=== PATIENT | female | born 1955 | race Caucasian/White ===

== ENCOUNTER 2018-08-22 02:29 | Emergency (ER) | payer MEDICARE, OTHER, SELFPAY ==
[2018-08-22] VITALS (12 sets, daily range): BP systolic 93–133; BP diastolic 59–94; PULSE 78–94; RESP 12–18; O2SAT 95–100
[2018-08-22] MEDS: PANTOPRAZOLE 40 MG VIAL IV (02:56)
[2018-08-22] MEDS: ONDANSETRON 4 MG/2 ML INJ IV (02:56)
--- NOTE | 2018-08-22 02:59 | ED.GIBLEED ---
HPI - GI Bleed <Cecilio Granados DO - Last Filed: 08/22/18 19:28> General Chief complaint: GI Bleed Stated complaint: Bloody stool, abdominal pain Time Seen by Provider: 08/22/18 02:30 Source: patient, family and EMS Mode of arrival: EMS Limitations: no limitations History of Present Illness HPI Narrative: 63 year old female, non smoker with history of breast CA presents by EMS with chief complaint of generalized abdominal cramping for 2 days and 1 day of increased blood per rectum. She's becoming weak. She states her abdominal discomfort builds until a BM at which point she feels some brief relief. Her last colonoscopy was over 10 years ago. She denies use of blood thinners. She does not drink alcohol and denies history of liver disease. She brought two jars with samples of the clotted, foul smelling blood. She refuses any blood product due to buddhism reasons. MD complaint: gross hematochezia Onset (ago): hour(s) Pain Consistency: intermittent Severity: moderate Relieving factors: bowel movement Associated symptoms: abdominal pain Treatments Prior to Arrival: none Related Data Home Medications Medication Instructions Recorded Confirmed [VITAMIN D] #0 05/25/11 07/08/18 Previous Rx's Medication Instructions Recorded gabapentin [Neurontin] 300 mg PO BID #30 cap 01/08/18 ondansetron [Zofran ODT] 4 mg SUBLINGUAL Q6HP PRN #20 odt 01/08/18 oxycodone-acetaminophen [Endocet] 1 tab PO Q4HP PRN #30 tab 01/08/18 Allergies Allergy/AdvReac Type Severity Reaction Status Date / Time No Known Drug Allergies Allergy Unverified 08/22/18 03:04 Review of Systems <Cecilio Granados DO - Last Filed: 08/22/18 19:28> Review of Systems All systems reviewed & are unremarkable except as noted in HPI and below Constitutional Denies chills, Denies fever(s), Denies lethargy and Denies weakness Eyes Denies change in vision, Denies eye discharge, Denies irritation and Denies loss of vision ENT Ears, Nose, Mouth, and Throat: Denies change in voice, Denies neck pain and Denies sore throat Cardiovascular Denies chest pain, Denies irregular heart rhythm, Denies lightheadedness, Denies palpitations, Denies dyspnea, Denies dyspnea on exertion and Denies orthopnea Respiratory Denies cough, Denies dyspnea, Denies dyspnea on exertion and Denies wheezing Gastrointestinal Gastrointestinal: Reports abdominal pain, Reports hematochezia, Denies change in bowel habits, Denies diarrhea, Denies nausea and Denies vomiting Genitourinary Denies hematuria, Denies flank pain, Denies urinary incontinence and Denies urinary urgency Musculoskeletal Denies neck pain Integumentary/Breasts Denies pruritus, Denies erythema, Denies rash and Denies wounds Neurologic Denies confusion, Denies loss of vision and Denies weakness Psychiatric Denies anxiety, Denies confusion, Denies depression, Denies homicidal ideation and Denies suicidal ideation Endocrine Denies palpitations Hematologic/Lymphatic Denies easy bruising Allergic/Immunologic Denies wheezing Exam <Cecilio Granados, - Last Filed: 08/22/18 19:28> Narrative Exam Narrative: GENERAL: Pleasant 63F in mild distress, clearly not feeling well. HEAD: Atraumatic. Normocephalic. No temporal or scalp tenderness. EYES: No conjunctival pallor. Pupils equal round and reactive. Extraocular motions intact. No scleral icterus. No injection or drainage. ENT: Nose without bleeding, purulent drainage or septal hematoma. Throat without erythema, tonsillar hypertrophy or exudate. Uvula midline. Airway patent. NECK: Trachea midline. No JVD or lymphadenopathy. Supple, nontender, no meningeal signs. CARDIOVASCULAR: Regular rate and rhythm without murmurs, gallops, or rubs. RESPIRATORY: Clear to auscultation. Breath sounds equal bilaterally. No wheezes, rales, or rhonchi. GASTROINTESTINAL: Abdomen soft, non-tender, nondistended. No hepato-splenomegaly, or palpable masses. No guarding. RECTAL: deferred, went to bedside with female nursing air commodore, but she had to quickly have another BM, noted to be bloody EXTREMITIES: No clubbing, cyanosis, or edema. No joint tenderness, effusion, or edema noted. BACK: Nontender without deformity or crepitance. No flank tenderness. NEURO: AOx3. SKIN: Warm, pale. No diaphoresis Initial Vital Signs Initial Vital Signs: Vital Signs Pulse Rate 81 08/22/18 02:30 Respiratory Rate 18 08/22/18 02:30 Blood Pressure 133/94 H 08/22/18 02:30 Pulse Oximetry 100 08/22/18 02:30 <Sloan Stevens DO - Last Filed: 08/22/18 09:22> Initial Vital Signs Initial Vital Signs: Vital Signs Pulse Rate 81 08/22/18 02:30 Respiratory Rate 18 08/22/18 02:30 Blood Pressure 133/94 H 08/22/18 02:30 Pulse Oximetry 100 08/22/18 02:30 Course <Cecilio Granados DO - Last Filed: 08/22/18 19:28> Orders Ordered: Discontinued Medications Sodium Chloride (Normal Saline 0.9%) 1,000 mls @ 500 mls/hr IV BOLUS ONE Stop: 08/22/18 11:36 Last Infusion: 08/22/18 10:30 Dose: 0 mls/hr Admin: 08/22/18 10:08 Dose: 500 mls/hr Ondansetron HCl (Zofran) 4 mg IV NOW ONE Stop: 08/22/18 02:31 Last Admin: 08/22/18 02:56 Dose: 4 mg Pantoprazole Sodium (Protonix) 40 mg IV NOW ONE Stop: 08/22/18 02:31 Last Admin: 08/22/18 02:56 Dose: 40 mg Reevaluation(s) Reevaluation #1: upon standing patient becomes tachy in the 110s and dizzy Time: 03:26 Vital Signs - 8 hr 08/22/18 02:30 08/22/18 03:10 08/22/18 04:05 Pulse Rate 81 81 85 Respiratory Rate 18 18 18 Blood Pressure 133/94 H Blood Pressure [Right Arm] 101/81 103/64 Pulse Oximetry 100 100 100 08/22/18 05:15 08/22/18 05:48 08/22/18 06:33 Pulse Rate 83 82 84 Respiratory Rate 18 16 18 Blood Pressure Blood Pressure [Right Arm] 96/68 103/67 98/64 Pulse Oximetry 100 97 08/22/18 07:00 08/22/18 07:30 08/22/18 08:06 Pulse Rate 94 H 87 89 Respiratory Rate 15 15 15 Blood Pressure Blood Pressure [Right Arm] 107/74 100/66 93/70 Pulse Oximetry 95 96 97 <DO Chepe Jarvis Last Filed: 08/22/18 09:22> Orders Ordered: Discontinued Medications Sodium Chloride (Normal Saline 0.9%) 1,000 mls @ 500 mls/hr IV BOLUS ONE Stop: 08/22/18 11:36 Last Infusion: 08/22/18 10:30 Dose: 0 mls/hr Admin: 08/22/18 10:08 Dose: 500 mls/hr Ondansetron HCl (Zofran) 4 mg IV NOW ONE Stop: 08/22/18 02:31 Last Admin: 08/22/18 02:56 Dose: 4 mg Pantoprazole Sodium (Protonix) 40 mg IV NOW ONE Stop: 08/22/18 02:31 Last Admin: 08/22/18 02:56 Dose: 40 mg Vital Signs - 8 hr 08/22/18 02:30 08/22/18 03:10 08/22/18 04:05 Pulse Rate 81 81 85 Respiratory Rate 18 18 18 Blood Pressure 133/94 H Blood Pressure [Right Arm] 101/81 103/64 Pulse Oximetry 100 100 100 08/22/18 05:15 08/22/18 05:48 08/22/18 06:33 Pulse Rate 83 82 84 Respiratory Rate 18 16 18 Blood Pressure Blood Pressure [Right Arm] 96/68 103/67 98/64 Pulse Oximetry 100 97 08/22/18 07:00 08/22/18 07:30 08/22/18 08:06 Pulse Rate 94 H 87 89 Respiratory Rate 15 15 15 Blood Pressure Blood Pressure [Right Arm] 107/74 100/66 93/70 Pulse Oximetry 95 96 97 MDM - GI Bleed <Cecilio Granados DO - Last Filed: 08/22/18 19:28> Lab Data Result diagrams: 08/22/18 08:09 08/22/18 03:00 Lab Results 08/22/18 08/22/18 08/22/18 Range/Units 03:00 03:00 03:00 WBC 7.0 (4.5-11.0) X10^3/uL RBC 3.72 L (4.0-5.2) X10^6/uL Hgb 11.0 L (12.0-16.0) g/dL Hct 31.7 L (36-46) % MCV 85.0 (80-100) fL MCH 29.5 (26-34) PG MCHC 34.6 (30-36) % RDW 13.1 (11.6-14.8) % Plt Count 253 (150-400) X10^3/uL Neut % (Auto) 62.8 (50-75) % Lymph % (Auto) 25.7 (25-40) % [place] % (Auto) 8.8 (3-14) % Eos % (Auto) 1.9 L (2-4) % Baso % (Auto) 0.8 (0-2) % Neut # (Auto) 4400 (9105-8971) /uL PT 10.8 (10.1-12.7) SECONDS INR 1.0 (0.9-1.3) APTT 28 (26.4-36.2) SECONDS Sodium 141 (137-145) mmol/L Potassium 3.8 (3.4-5.1) mmol/L Chloride 104 (98-107) mmol/L Carbon Dioxide 26 (22-32) mmol/L BUN 24 H (7-17) mg/dL Creatinine 0.70 (0.52-1.04) mg/dL Estimated GFR > 60.0 (>60) mL/min BUN/Creatinine Ratio 34.3 H (6-22) Glucose 117 H (80-110) mg/dL Calcium 9.2 (8.4-10.2) mg/dL Total Bilirubin 0.3 (0.2-1.3) mg/dL AST 30 (14-36) IU/L ALT 43 (9-52) IU/L Alkaline Phosphatase 72 (38-126) U/L Total Protein 6.2 L (6.3-8.2) g/dL Albumin 4.1 (3.5-5.0) g/dL Globulin 2.1 (1.7-4.1) g/dL Albumin/Globulin Ratio 2.0 (1.0-2.8) Stool Aeromonas Cult (Not Detect) Stl C. cayetanensis PCR (Not Detect) Stool Rotavirus (PCR) (Not Detect) Stool Adenovirus (PCR) (Not Detect) Stool Astrovirus (PCR) (Not Detect) Stool Cryptosporidium PCR (Not Detect) Stl E.coli Shiga Tox PCR (Not Detect) St Sh/Enteroin Ecoli PCR (Not Detect) Stool E coli O157 PCR Stl Enterotoxigenic E PCR (Not Detect) Stool EPEC (PCR) (Not Detect) Stl E. histolytica PCR (Not Detect) Stool Giardia Lamblia PCR (Not Detect) Stool Sapovirus (PCR) (Not Detect) Stl P. shigelloides PCR (Not Detect) St Y.enterocolitica PCR (Not Detect) Stool Vibrio (PCR) (Not Detect) Stl Vibrio cholerae PCR (Not Detect) Stl Enteroaggr Ecoli PCR (Not Detect) Stl Norovirus GI/GII PCR (Not Detect) Campylobacter (PCR) (Not Detect) C. difficile Tox (PCR) (Not Detect) Salmonella (PCR) (Not Detect) 08/22/18 08/22/18 08/22/18 Range/Units 05:11 06:50 08:09 WBC (4.5-11.0) X10^3/uL RBC (4.0-5.2) X10^6/uL Hgb 9.5 L 9.2 L (12.0-16.0) g/dL Hct 28.5 L 27.2 L (36-46) % MCV (80-100) fL MCH (26-34) PG MCHC (30-36) % RDW (11.6-14.8) % Plt Count (150-400) X10^3/uL Neut % (Auto) (50-75) % Lymph % (Auto) (25-40) % [place] % (Auto) (3-14) % Eos % (Auto) (2-4) % Baso % (Auto) (0-2) % Neut # (Auto) (4896-7841) /uL PT (10.1-12.7) SECONDS INR (0.9-1.3) APTT (26.4-36.2) SECONDS Sodium (137-145) mmol/L Potassium (3.4-5.1) mmol/L Chloride (98-107) mmol/L Carbon Dioxide (22-32) mmol/L BUN (7-17) mg/dL Creatinine (0.52-1.04) mg/dL Estimated GFR (>60) mL/min BUN/Creatinine Ratio (6-22) Glucose (80-110) mg/dL Calcium (8.4-10.2) mg/dL Total Bilirubin (0.2-1.3) mg/dL AST (14-36) IU/L ALT (9-52) IU/L Alkaline Phosphatase (38-126) U/L Total Protein (6.3-8.2) g/dL Albumin (3.5-5.0) g/dL Globulin (1.7-4.1) g/dL Albumin/Globulin Ratio (1.0-2.8) Stool Aeromonas Cult Awaiting culture res (Not Detect) Stl C. cayetanensis PCR Not detected (Not Detect) Stool Rotavirus (PCR) Not detected (Not Detect) Stool Adenovirus (PCR) Not detected (Not Detect) Stool Astrovirus (PCR) Not detected (Not Detect) Stool Cryptosporidium PCR Not detected (Not Detect) Stl E.coli Shiga Tox PCR Not detected (Not Detect) St Sh/Enteroin Ecoli PCR Not detected (Not Detect) Stool E coli O157 PCR Not Reportable Stl Enterotoxigenic E PCR Not detected (Not Detect) Stool EPEC (PCR) Not detected (Not Detect) Stl E. histolytica PCR Not detected (Not Detect) Stool Giardia Lamblia PCR Not detected (Not Detect) Stool Sapovirus (PCR) Not detected (Not Detect) Stl P. shigelloides PCR Not detected (Not Detect) St Y.enterocolitica PCR Not detected (Not Detect) Stool Vibrio (PCR) Not detected (Not Detect) Stl Vibrio cholerae PCR Not detected (Not Detect) Stl Enteroaggr Ecoli PCR Not detected (Not Detect) Stl Norovirus GI/GII PCR Not detected (Not Detect) Campylobacter (PCR) Not detected (Not Detect) C. difficile Tox (PCR) Not detected (Not Detect) Salmonella (PCR) Not detected (Not Detect) Point of Care Testing Stool Occult Blood Positive <Sloan Stevens DO - Last Filed: 08/22/18 09:22> Lab Data Attestation: I reviewed the patient's lab results. Lab Results 08/22/18 08/22/18 08/22/18 Range/Units 03:00 03:00 03:00 WBC 7.0 (4.5-11.0) X10^3/uL RBC 3.72 L (4.0-5.2) X10^6/uL Hgb 11.0 L (12.0-16.0) g/dL Hct 31.7 L (36-46) % MCV 85.0 (80-100) fL MCH 29.5 (26-34) PG MCHC 34.6 (30-36) % RDW 13.1 (11.6-14.8) % Plt Count 253 (150-400) X10^3/uL Neut % (Auto) 62.8 (50-75) % Lymph % (Auto) 25.7 (25-40) % [place] % (Auto) 8.8 (3-14) % Eos % (Auto) 1.9 L (2-4) % Baso % (Auto) 0.8 (0-2) % Neut # (Auto) 4400 (5392-8714) /uL PT 10.8 (10.1-12.7) SECONDS INR 1.0 (0.9-1.3) APTT 28 (26.4-36.2) SECONDS Sodium 141 (137-145) mmol/L Potassium 3.8 (3.4-5.1) mmol/L Chloride 104 (98-107) mmol/L Carbon Dioxide 26 (22-32) mmol/L BUN 24 H (7-17) mg/dL Creatinine 0.70 (0.52-1.04) mg/dL Estimated GFR > 60.0 (>60) mL/min BUN/Creatinine Ratio 34.3 H (6-22) Glucose 117 H (80-110) mg/dL Calcium 9.2 (8.4-10.2) mg/dL Total Bilirubin 0.3 (0.2-1.3) mg/dL AST 30 (14-36) IU/L ALT 43 (9-52) IU/L Alkaline Phosphatase 72 (38-126) U/L Total Protein 6.2 L (6.3-8.2) g/dL Albumin 4.1 (3.5-5.0) g/dL Globulin 2.1 (1.7-4.1) g/dL Albumin/Globulin Ratio 2.0 (1.0-2.8) Stool Aeromonas Cult (Not Detect) Stl C. cayetanensis PCR (Not Detect) Stool Rotavirus (PCR) (Not Detect) Stool Adenovirus (PCR) (Not Detect) Stool Astrovirus (PCR) (Not Detect) Stool Cryptosporidium PCR (Not Detect) Stl E.coli Shiga Tox PCR (Not Detect) St Sh/Enteroin Ecoli PCR (Not Detect) Stool E coli O157 PCR Stl Enterotoxigenic E PCR (Not Detect) Stool EPEC (PCR) (Not Detect) Stl E. histolytica PCR (Not Detect) Stool Giardia Lamblia PCR (Not Detect) Stool Sapovirus (PCR) (Not Detect) Stl P. shigelloides PCR (Not Detect) St Y.enterocolitica PCR (Not Detect) Stool Vibrio (PCR) (Not Detect) Stl Vibrio cholerae PCR (Not Detect) Stl Enteroaggr Ecoli PCR (Not Detect) Stl Norovirus GI/GII PCR (Not Detect) Campylobacter (PCR) (Not Detect) C. difficile Tox (PCR) (Not Detect) Salmonella (PCR) (Not Detect) 08/22/18 08/22/18 08/22/18 Range/Units 05:11 06:50 08:09 WBC (4.5-11.0) X10^3/uL RBC (4.0-5.2) X10^6/uL Hgb 9.5 L 9.2 L (12.0-16.0) g/dL Hct 28.5 L 27.2 L (36-46) % MCV (80-100) fL MCH (26-34) PG MCHC (30-36) % RDW (11.6-14.8) % Plt Count (150-400) X10^3/uL Neut % (Auto) (50-75) % Lymph % (Auto) (25-40) % [place] % (Auto) (3-14) % Eos % (Auto) (2-4) % Baso % (Auto) (0-2) % Neut # (Auto) (2732-6510) /uL PT (10.1-12.7) SECONDS INR (0.9-1.3) APTT (26.4-36.2) SECONDS Sodium (137-145) mmol/L Potassium (3.4-5.1) mmol/L Chloride (98-107) mmol/L Carbon Dioxide (22-32) mmol/L BUN (7-17) mg/dL Creatinine (0.52-1.04) mg/dL Estimated GFR (>60) mL/min BUN/Creatinine Ratio (6-22) Glucose (80-110) mg/dL Calcium (8.4-10.2) mg/dL Total Bilirubin (0.2-1.3) mg/dL AST (14-36) IU/L ALT (9-52) IU/L Alkaline Phosphatase (38-126) U/L Total Protein (6.3-8.2) g/dL Albumin (3.5-5.0) g/dL Globulin (1.7-4.1) g/dL Albumin/Globulin Ratio (1.0-2.8) Stool Aeromonas Cult Awaiting culture res (Not Detect) Stl C. cayetanensis PCR Not detected (Not Detect) Stool Rotavirus (PCR) Not detected (Not Detect) Stool Adenovirus (PCR) Not detected (Not Detect) Stool Astrovirus (PCR) Not detected (Not Detect) Stool Cryptosporidium PCR Not detected (Not Detect) Stl E.coli Shiga Tox PCR Not detected (Not Detect) St Sh/Enteroin Ecoli PCR Not detected (Not Detect) Stool E coli O157 PCR Not Reportable Stl Enterotoxigenic E PCR Not detected (Not Detect) Stool EPEC (PCR) Not detected (Not Detect) Stl E. histolytica PCR Not detected (Not Detect) Stool Giardia Lamblia PCR Not detected (Not Detect) Stool Sapovirus (PCR) Not detected (Not Detect) Stl P. shigelloides PCR Not detected (Not Detect) St Y.enterocolitica PCR Not detected (Not Detect) Stool Vibrio (PCR) Not detected (Not Detect) Stl Vibrio cholerae PCR Not detected (Not Detect) Stl Enteroaggr Ecoli PCR Not detected (Not Detect) Stl Norovirus GI/GII PCR Not detected (Not Detect) Campylobacter (PCR) Not detected (Not Detect) C. difficile Tox (PCR) Not detected (Not Detect) Salmonella (PCR) Not detected (Not Detect) Point of Care Testing Stool Occult Blood Positive MDM Narrative Medical decision making narrative: received turned over from night provider. I reviewed patient's history and physical exam. Repeat H&H same as the 2nd H&H after arrival here in the ER. Patient has continued to have bowel movements. She is alert oriented x3. Declines blood products secondary to buddhism reasons. Blood pressure has remained stable however systolic blood pressure is high 80s low 90s. No fluids were administered. Bed assignment was provided at [facility]. Patient understands transport. Patient is stable for transport. Discharge Plan Departure Patient Disposition: [facility] Clinical Impression: Acute GI bleeding Discharge Date/Time: 08/22/18 10:28 Interventions: ED Discharge Assessment Last Done: 08/22/18 10:28 Prescriptions: No Action [VITAMIN D] Qty: 0 RF: 0 oxycodone-acetaminophen [Endocet] 5 MG/325 MG tablet 1 tab PO Q4HP PRNQty: 30 RF: 0 gabapentin [Neurontin] 300 MG capsule 300 mg PO BID Qty: 30 RF: 0 ondansetron [Zofran ODT] 4 MG tablet,disintegrating 4 mg Sublingual Q6HP PRNQty: 20 RF: 0
--- NOTE | 2018-08-22 03:02 | ED_ITS ---
HPI - GI Bleed <Cecilio Granados DO - Last Filed: 08/22/18 19:28> General Chief complaint: GI Bleed Stated complaint: Bloody stool, abdominal pain Time Seen by Provider: 08/22/18 02:30 Source: patient, family and EMS Mode of arrival: EMS Limitations: no limitations History of Present Illness HPI Narrative: 63 year old female, non smoker with history of breast CA presents by EMS with chief complaint of generalized abdominal cramping for 2 days and 1 day of increased blood per rectum. She's becoming weak. She states her abdominal discomfort builds until a BM at which point she feels some brief relief. Her last colonoscopy was over 10 years ago. She denies use of blood thinners. She does not drink alcohol and denies history of liver disease. She brought two jars with samples of the clotted, foul smelling blood. She refuses any blood product due to episcopal reasons. MD complaint: gross hematochezia Onset (ago): hour(s) Pain Consistency: intermittent Severity: moderate Relieving factors: bowel movement Associated symptoms: abdominal pain Treatments Prior to Arrival: none Related Data Home Medications Medication Instructions Recorded Confirmed [VITAMIN D] #0 05/25/11 07/08/18 Previous Rx's Medication Instructions Recorded gabapentin [Neurontin] 300 mg PO BID #30 cap 01/08/18 ondansetron [Zofran ODT] 4 mg SUBLINGUAL Q6HP PRN #20 odt 01/08/18 oxycodone-acetaminophen [Endocet] 1 tab PO Q4HP PRN #30 tab 01/08/18 Allergies Allergy/AdvReac Type Severity Reaction Status Date / Time No Known Drug Allergies Allergy Unverified 08/22/18 03:04 Review of Systems <Cecilio Granados DO - Last Filed: 08/22/18 19:28> Review of Systems All systems reviewed & are unremarkable except as noted in HPI and below Constitutional Denies chills, Denies fever(s), Denies lethargy and Denies weakness Eyes Denies change in vision, Denies eye discharge, Denies irritation and Denies loss of vision ENT Ears, Nose, Mouth, and Throat: Denies change in voice, Denies neck pain and Denies sore throat Cardiovascular Denies chest pain, Denies irregular heart rhythm, Denies lightheadedness, Denies palpitations, Denies dyspnea, Denies dyspnea on exertion and Denies orthopnea Respiratory Denies cough, Denies dyspnea, Denies dyspnea on exertion and Denies wheezing Gastrointestinal Gastrointestinal: Reports abdominal pain, Reports hematochezia, Denies change in bowel habits, Denies diarrhea, Denies nausea and Denies vomiting Genitourinary Denies hematuria, Denies flank pain, Denies urinary incontinence and Denies urinary urgency Musculoskeletal Denies neck pain Integumentary/Breasts Denies pruritus, Denies erythema, Denies rash and Denies wounds Neurologic Denies confusion, Denies loss of vision and Denies weakness Psychiatric Denies anxiety, Denies confusion, Denies depression, Denies homicidal ideation and Denies suicidal ideation Endocrine Denies palpitations Hematologic/Lymphatic Denies easy bruising Allergic/Immunologic Denies wheezing Exam <Cecilio Granados, - Last Filed: 08/22/18 19:28> Narrative Exam Narrative: GENERAL: Pleasant 63F in mild distress, clearly not feeling well. HEAD: Atraumatic. Normocephalic. No temporal or scalp tenderness. EYES: No conjunctival pallor. Pupils equal round and reactive. Extraocular motions intact. No scleral icterus. No injection or drainage. ENT: Nose without bleeding, purulent drainage or septal hematoma. Throat without erythema, tonsillar hypertrophy or exudate. Uvula midline. Airway patent. NECK: Trachea midline. No JVD or lymphadenopathy. Supple, nontender, no meningeal signs. CARDIOVASCULAR: Regular rate and rhythm without murmurs, gallops, or rubs. RESPIRATORY: Clear to auscultation. Breath sounds equal bilaterally. No wheezes , rales, or rhonchi. GASTROINTESTINAL: Abdomen soft, non-tender, nondistended. No hepato-splenomegaly , or palpable masses. No guarding. RECTAL: deferred, went to bedside with female nursing tree pruner, but she had to quickly have another BM, noted to be bloody EXTREMITIES: No clubbing, cyanosis, or edema. No joint tenderness, effusion, or edema noted. BACK: Nontender without deformity or crepitance. No flank tenderness. NEURO: AOx3. SKIN: Warm, pale. No diaphoresis Initial Vital Signs Initial Vital Signs: Vital Signs Pulse Rate 81 08/22/18 02:30 Respiratory Rate 18 08/22/18 02:30 Blood Pressure 133/94 H 08/22/18 02:30 Pulse Oximetry 100 08/22/18 02:30 <Sloan Stevens DO - Last Filed: 08/22/18 09:22> Initial Vital Signs Initial Vital Signs: Vital Signs Pulse Rate 81 08/22/18 02:30 Respiratory Rate 18 08/22/18 02:30 Blood Pressure 133/94 H 08/22/18 02:30 Pulse Oximetry 100 08/22/18 02:30 Course <Cecilio Granados DO - Last Filed: 08/22/18 19:28> Orders Ordered: Discontinued Medications Sodium Chloride (Normal Saline 0.9%) 1,000 mls @ 500 mls/hr IV BOLUS ONE Stop: 08/22/18 11:36 Last Infusion: 08/22/18 10:30 Dose: 0 mls/hr Admin: 08/22/18 10:08 Dose: 500 mls/hr Ondansetron HCl (Zofran) 4 mg IV NOW ONE Stop: 08/22/18 02:31 Last Admin: 08/22/18 02:56 Dose: 4 mg Pantoprazole Sodium (Protonix) 40 mg IV NOW ONE Stop: 08/22/18 02:31 Last Admin: 08/22/18 02:56 Dose: 40 mg Reevaluation(s) Reevaluation #1: upon standing patient becomes tachy in the 110s and dizzy Time: 03:26 Vital Signs - 8 hr 08/22/18 02:30 08/22/18 03:10 08/22/18 04:05 Pulse Rate 81 81 85 Respiratory Rate 18 18 18 Blood Pressure 133/94 H Blood Pressure [Right Arm] 101/81 103/64 Pulse Oximetry 100 100 100 08/22/18 05:15 08/22/18 05:48 08/22/18 06:33 Pulse Rate 83 82 84 Respiratory Rate 18 16 18 Blood Pressure Blood Pressure [Right Arm] 96/68 103/67 98/64 Pulse Oximetry 100 97 08/22/18 07:00 08/22/18 07:30 08/22/18 08:06 Pulse Rate 94 H 87 89 Respiratory Rate 15 15 15 Blood Pressure Blood Pressure [Right Arm] 107/74 100/66 93/70 Pulse Oximetry 95 96 97 <DO Chepe Javris Last Filed: 08/22/18 09:22> Orders Ordered: Discontinued Medications Sodium Chloride (Normal Saline 0.9%) 1,000 mls @ 500 mls/hr IV BOLUS ONE Stop: 08/22/18 11:36 Last Infusion: 08/22/18 10:30 Dose: 0 mls/hr Admin: 08/22/18 10:08 Dose: 500 mls/hr Ondansetron HCl (Zofran) 4 mg IV NOW ONE Stop: 08/22/18 02:31 Last Admin: 08/22/18 02:56 Dose: 4 mg Pantoprazole Sodium (Protonix) 40 mg IV NOW ONE Stop: 08/22/18 02:31 Last Admin: 08/22/18 02:56 Dose: 40 mg Vital Signs - 8 hr 08/22/18 02:30 08/22/18 03:10 08/22/18 04:05 Pulse Rate 81 81 85 Respiratory Rate 18 18 18 Blood Pressure 133/94 H Blood Pressure [Right Arm] 101/81 103/64 Pulse Oximetry 100 100 100 08/22/18 05:15 08/22/18 05:48 08/22/18 06:33 Pulse Rate 83 82 84 Respiratory Rate 18 16 18 Blood Pressure Blood Pressure [Right Arm] 96/68 103/67 98/64 Pulse Oximetry 100 97 08/22/18 07:00 08/22/18 07:30 08/22/18 08:06 Pulse Rate 94 H 87 89 Respiratory Rate 15 15 15 Blood Pressure Blood Pressure [Right Arm] 107/74 100/66 93/70 Pulse Oximetry 95 96 97 MDM - GI Bleed <Cecilio Granados DO - Last Filed: 08/22/18 19:28> Lab Data Result diagrams: 08/22/18 08:09 08/22/18 03:00 Lab Results 08/22/18 08/22/18 08/22/18 Range/Units 03:00 03:00 03:00 WBC 7.0 (4.5-11.0) X10^3/uL RBC 3.72 L (4.0-5.2) X10^6/uL Hgb 11.0 L (12.0-16.0) g/dL Hct 31.7 L (36-46) % MCV 85.0 (80-100) fL MCH 29.5 (26-34) PG MCHC 34.6 (30-36) % RDW 13.1 (11.6-14.8) % Plt Count 253 (150-400) X10^3/uL Neut % (Auto) 62.8 (50-75) % Lymph % (Auto) 25.7 (25-40) % Lincoln % (Auto) 8.8 (3-14) % Eos % (Auto) 1.9 L (2-4) % Baso % (Auto) 0.8 (0-2) % Neut # (Auto) 4400 (4777-9660) /uL PT 10.8 (10.1-12.7) SECONDS INR 1.0 (0.9-1.3) APTT 28 (26.4-36.2) SECONDS Sodium 141 (137-145) mmol/L Potassium 3.8 (3.4-5.1) mmol/L Chloride 104 (98-107) mmol/L Carbon Dioxide 26 (22-32) mmol/L BUN 24 H (7-17) mg/dL Creatinine 0.70 (0.52-1.04) mg/dL Estimated GFR > 60.0 (>60) mL/min BUN/Creatinine Ratio 34.3 H (6-22) Glucose 117 H (80-110) mg/dL Calcium 9.2 (8.4-10.2) mg/dL Total Bilirubin 0.3 (0.2-1.3) mg/dL AST 30 (14-36) IU/L ALT 43 (9-52) IU/L Alkaline Phosphatase 72 (38-126) U/L Total Protein 6.2 L (6.3-8.2) g/dL Albumin 4.1 (3.5-5.0) g/dL Globulin 2.1 (1.7-4.1) g/dL Albumin/Globulin Ratio 2.0 (1.0-2.8) Stool Aeromonas Cult (Not Detect) Stl C. cayetanensis PCR (Not Detect) Stool Rotavirus (PCR) (Not Detect) Stool Adenovirus (PCR) (Not Detect) Stool Astrovirus (PCR) (Not Detect) Stool Cryptosporidium PCR (Not Detect) Stl E.coli Shiga Tox PCR (Not Detect) St Sh/Enteroin Ecoli PCR (Not Detect) Stool E coli O157 PCR Stl Enterotoxigenic E PCR (Not Detect) Stool EPEC (PCR) (Not Detect) Stl E. histolytica PCR (Not Detect) Stool Giardia Lamblia PCR (Not Detect) Stool Sapovirus (PCR) (Not Detect) Stl P. shigelloides PCR (Not Detect) St Y.enterocolitica PCR (Not Detect) Stool Vibrio (PCR) (Not Detect) Stl Vibrio cholerae PCR (Not Detect) Stl Enteroaggr Ecoli PCR (Not Detect) Stl Norovirus GI/GII PCR (Not Detect) Campylobacter (PCR) (Not Detect) C. difficile Tox (PCR) (Not Detect) Salmonella (PCR) (Not Detect) 08/22/18 08/22/18 08/22/18 Range/Units 05:11 06:50 08:09 WBC (4.5-11.0) X10^3/uL RBC (4.0-5.2) X10^6/uL Hgb 9.5 L 9.2 L (12.0-16.0) g/dL Hct 28.5 L 27.2 L (36-46) % MCV (80-100) fL MCH (26-34) PG MCHC (30-36) % RDW (11.6-14.8) % Plt Count (150-400) X10^3/uL Neut % (Auto) (50-75) % Lymph % (Auto) (25-40) % Lincoln % (Auto) (3-14) % Eos % (Auto) (2-4) % Baso % (Auto) (0-2) % Neut # (Auto) (5868-0093) /uL PT (10.1-12.7) SECONDS INR (0.9-1.3) APTT (26.4-36.2) SECONDS Sodium (137-145) mmol/L Potassium (3.4-5.1) mmol/L Chloride (98-107) mmol/L Carbon Dioxide (22-32) mmol/L BUN (7-17) mg/dL Creatinine (0.52-1.04) mg/dL Estimated GFR (>60) mL/min BUN/Creatinine Ratio (6-22) Glucose (80-110) mg/dL Calcium (8.4-10.2) mg/dL Total Bilirubin (0.2-1.3) mg/dL AST (14-36) IU/L ALT (9-52) IU/L Alkaline Phosphatase (38-126) U/L Total Protein (6.3-8.2) g/dL Albumin (3.5-5.0) g/dL Globulin (1.7-4.1) g/dL Albumin/Globulin Ratio (1.0-2.8) Stool Aeromonas Cult Awaiting culture res (Not Detect) Stl C. cayetanensis PCR Not detected (Not Detect) Stool Rotavirus (PCR) Not detected (Not Detect) Stool Adenovirus (PCR) Not detected (Not Detect) Stool Astrovirus (PCR) Not detected (Not Detect) Stool Cryptosporidium PCR Not detected (Not Detect) Stl E.coli Shiga Tox PCR Not detected (Not Detect) St Sh/Enteroin Ecoli PCR Not detected (Not Detect) Stool E coli O157 PCR Not Reportable Stl Enterotoxigenic E PCR Not detected (Not Detect) Stool EPEC (PCR) Not detected (Not Detect) Stl E. histolytica PCR Not detected (Not Detect) Stool Giardia Lamblia PCR Not detected (Not Detect) Stool Sapovirus (PCR) Not detected (Not Detect) Stl P. shigelloides PCR Not detected (Not Detect) St Y.enterocolitica PCR Not detected (Not Detect) Stool Vibrio (PCR) Not detected (Not Detect) Stl Vibrio cholerae PCR Not detected (Not Detect) Stl Enteroaggr Ecoli PCR Not detected (Not Detect) Stl Norovirus GI/GII PCR Not detected (Not Detect) Campylobacter (PCR) Not detected (Not Detect) C. difficile Tox (PCR) Not detected (Not Detect) Salmonella (PCR) Not detected (Not Detect) Point of Care Testing Stool Occult Blood Positive <Sloan Stevens DO - Last Filed: 08/22/18 09:22> Lab Data Attestation: I reviewed the patient's lab results. Lab Results 08/22/18 08/22/18 08/22/18 Range/Units 03:00 03:00 03:00 WBC 7.0 (4.5-11.0) X10^3/uL RBC 3.72 L (4.0-5.2) X10^6/uL Hgb 11.0 L (12.0-16.0) g/dL Hct 31.7 L (36-46) % MCV 85.0 (80-100) fL MCH 29.5 (26-34) PG MCHC 34.6 (30-36) % RDW 13.1 (11.6-14.8) % Plt Count 253 (150-400) X10^3/uL Neut % (Auto) 62.8 (50-75) % Lymph % (Auto) 25.7 (25-40) % Lincoln % (Auto) 8.8 (3-14) % Eos % (Auto) 1.9 L (2-4) % Baso % (Auto) 0.8 (0-2) % Neut # (Auto) 4400 (1316-0412) /uL PT 10.8 (10.1-12.7) SECONDS INR 1.0 (0.9-1.3) APTT 28 (26.4-36.2) SECONDS Sodium 141 (137-145) mmol/L Potassium 3.8 (3.4-5.1) mmol/L Chloride 104 (98-107) mmol/L Carbon Dioxide 26 (22-32) mmol/L BUN 24 H (7-17) mg/dL Creatinine 0.70 (0.52-1.04) mg/dL Estimated GFR > 60.0 (>60) mL/min BUN/Creatinine Ratio 34.3 H (6-22) Glucose 117 H (80-110) mg/dL Calcium 9.2 (8.4-10.2) mg/dL Total Bilirubin 0.3 (0.2-1.3) mg/dL AST 30 (14-36) IU/L ALT 43 (9-52) IU/L Alkaline Phosphatase 72 (38-126) U/L Total Protein 6.2 L (6.3-8.2) g/dL Albumin 4.1 (3.5-5.0) g/dL Globulin 2.1 (1.7-4.1) g/dL Albumin/Globulin Ratio 2.0 (1.0-2.8) Stool Aeromonas Cult (Not Detect) Stl C. cayetanensis PCR (Not Detect) Stool Rotavirus (PCR) (Not Detect) Stool Adenovirus (PCR) (Not Detect) Stool Astrovirus (PCR) (Not Detect) Stool Cryptosporidium PCR (Not Detect) Stl E.coli Shiga Tox PCR (Not Detect) St Sh/Enteroin Ecoli PCR (Not Detect) Stool E coli O157 PCR Stl Enterotoxigenic E PCR (Not Detect) Stool EPEC (PCR) (Not Detect) Stl E. histolytica PCR (Not Detect) Stool Giardia Lamblia PCR (Not Detect) Stool Sapovirus (PCR) (Not Detect) Stl P. shigelloides PCR (Not Detect) St Y.enterocolitica PCR (Not Detect) Stool Vibrio (PCR) (Not Detect) Stl Vibrio cholerae PCR (Not Detect) Stl Enteroaggr Ecoli PCR (Not Detect) Stl Norovirus GI/GII PCR (Not Detect) Campylobacter (PCR) (Not Detect) C. difficile Tox (PCR) (Not Detect) Salmonella (PCR) (Not Detect) 08/22/18 08/22/18 08/22/18 Range/Units 05:11 06:50 08:09 WBC (4.5-11.0) X10^3/uL RBC (4.0-5.2) X10^6/uL Hgb 9.5 L 9.2 L (12.0-16.0) g/dL Hct 28.5 L 27.2 L (36-46) % MCV (80-100) fL MCH (26-34) PG MCHC (30-36) % RDW (11.6-14.8) % Plt Count (150-400) X10^3/uL Neut % (Auto) (50-75) % Lymph % (Auto) (25-40) % Lincoln % (Auto) (3-14) % Eos % (Auto) (2-4) % Baso % (Auto) (0-2) % Neut # (Auto) (6512-4842) /uL PT (10.1-12.7) SECONDS INR (0.9-1.3) APTT (26.4-36.2) SECONDS Sodium (137-145) mmol/L Potassium (3.4-5.1) mmol/L Chloride (98-107) mmol/L Carbon Dioxide (22-32) mmol/L BUN (7-17) mg/dL Creatinine (0.52-1.04) mg/dL Estimated GFR (>60) mL/min BUN/Creatinine Ratio (6-22) Glucose (80-110) mg/dL Calcium (8.4-10.2) mg/dL Total Bilirubin (0.2-1.3) mg/dL AST (14-36) IU/L ALT (9-52) IU/L Alkaline Phosphatase (38-126) U/L Total Protein (6.3-8.2) g/dL Albumin (3.5-5.0) g/dL Globulin (1.7-4.1) g/dL Albumin/Globulin Ratio (1.0-2.8) Stool Aeromonas Cult Awaiting culture res (Not Detect) Stl C. cayetanensis PCR Not detected (Not Detect) Stool Rotavirus (PCR) Not detected (Not Detect) Stool Adenovirus (PCR) Not detected (Not Detect) Stool Astrovirus (PCR) Not detected (Not Detect) Stool Cryptosporidium PCR Not detected (Not Detect) Stl E.coli Shiga Tox PCR Not detected (Not Detect) St Sh/Enteroin Ecoli PCR Not detected (Not Detect) Stool E coli O157 PCR Not Reportable Stl Enterotoxigenic E PCR Not detected (Not Detect) Stool EPEC (PCR) Not detected (Not Detect) Stl E. histolytica PCR Not detected (Not Detect) Stool Giardia Lamblia PCR Not detected (Not Detect) Stool Sapovirus (PCR) Not detected (Not Detect) Stl P. shigelloides PCR Not detected (Not Detect) St Y.enterocolitica PCR Not detected (Not Detect) Stool Vibrio (PCR) Not detected (Not Detect) Stl Vibrio cholerae PCR Not detected (Not Detect) Stl Enteroaggr Ecoli PCR Not detected (Not Detect) Stl Norovirus GI/GII PCR Not detected (Not Detect) Campylobacter (PCR) Not detected (Not Detect) C. difficile Tox (PCR) Not detected (Not Detect) Salmonella (PCR) Not detected (Not Detect) Point of Care Testing Stool Occult Blood Positive MDM Narrative Medical decision making narrative: received turned over from night provider. I reviewed patient's history and physical exam. Repeat H&H same as the 2nd H&H after arrival here in the ER. Patient has continued to have bowel movements. She is alert oriented x3. Declines blood products secondary to episcopal reasons. Blood pressure has remained stable however systolic blood pressure is high 80s low 90s. No fluids were administered. Bed assignment was provided at [facility]. Patient understands transport. Patient is stable for transport. Discharge Plan Departure Patient Disposition: [facility] Clinical Impression: Acute GI bleeding Discharge Date/Time: 08/22/18 10:28 Interventions: ED Discharge Assessment Last Done: 08/22/18 10:28 Prescriptions: No Action [VITAMIN D] Qty: 0 RF: 0 oxycodone-acetaminophen [Endocet] 5 MG/325 MG tablet 1 tab PO Q4HP PRNQty: 30 RF: 0 gabapentin [Neurontin] 300 MG capsule 300 mg PO BID Qty: 30 RF: 0 ondansetron [Zofran ODT] 4 MG tablet,disintegrating 4 mg Sublingual Q6HP PRNQty: 20 RF: 0
[2018-08-22 03:13] LABS: Add Manual Diff / Slide Review NO; Alanine Aminotransferase 43 IU/L (9-52); Albumin 4.1 g/dL (3.5-5.0); Alkaline Phosphatase 72 U/L (38-126); Aspartate Aminotransferase 30 IU/L (14-36); BUN Creatinine Ratio 34.3 (6-22); Basophils Percent Auto 0.8 % (0-2); Bilirubin Total 0.3 mg/dL (0.2-1.3); Blood Urea Nitrogen 24 mg/dL (7-17); Calcium 9.2 mg/dL (8.4-10.2); Carbon Dioxide 26 mmol/L (22-32); Chloride 104 mmol/L (98-107); Eosinophils Percent Auto 1.9 % (2-4); Estimated Glomerular Filt Rate > 60.0 mL/min (>60); Globulin 2.1 g/dL (1.7-4.1); Glucose 117 mg/dL (80-110); HEMOLYSIS < 15 (0-50); Hematocrit 31.7 % (36-46); Lymphocytes Percent Auto 25.7 % (25-40); Mean Corpuscular HGB Conc 34.6 % (30-36); Mean Corpuscular Hemoglobin 29.5 PG (26-34); Monocytes Percent Auto 8.8 % (3-14); Neutrophils Absolute Auto 4400 /uL (3000-5900); Neutrophils Percent Auto 62.8 % (50-75); Platelet Count 253 X10^3/uL (150-400); Potassium 3.8 mmol/L (3.4-5.1); Red Blood Cell Count 3.72 X10^6/uL (4.0-5.2); Red Cell Distribution Width 13.1 % (11.6-14.8); Sodium 141 mmol/L (137-145); Total Protein 6.2 g/dL (6.3-8.2)
[2018-08-22 03:24] LABS: Prothrombin Time 10.8 SECONDS (10.1-12.7)
[2018-08-22 03:27] LABS: PTT Partial Thromboplastin Tim 28 SECONDS (26.4-36.2)
[2018-08-22 07:01] LABS: Hematocrit 28.5 % (36-46); Hemoglobin 9.5 g/dL (12.0-16.0)
[2018-08-22 07:01] LABS: Adenovirus F 40/41 Not Detected (Not Detect); Astrovirus Not Detected (Not Detect); Campylobacter Not Detected (Not Detect); Clostridium difficile toxin AB Not Detected (Not Detect); Cryptosporidium Not Detected (Not Detect); Cyclospora cayetanensis Not Detected (Not Detect); Entamoeba histolytica Not Detected (Not Detect); Enteroaggregative E.coli Not Detected (Not Detect); Enteropathogenic E.coli Not Detected (Not Detect); Enterotoxigenic E.coli It/st Not Detected (Not Detect); Giardia lamblia Not Detected (Not Detect); Norovirus GI/GII Not Detected (Not Detect); Plesiomonsa shigelloides Not Detected (Not Detect); Rotavirus A Not Detected (Not Detect); Salmonella Not Detected (Not Detect); Sapovirus Not Detected (Not Detect); Shiga-like toxin-prod E.coli Not Detected (Not Detect); Shigella/Enteroinvasive E.coli Not Detected (Not Detect); Vibrio Not Detected (Not Detect); Vibrio cholerae Not Detected (Not Detect); Yersinia enterocolitica Not Detected (Not Detect)
[2018-08-22 08:15] LABS: Hematocrit 27.2 % (36-46); Hemoglobin 9.2 g/dL (12.0-16.0)
[2018-08-22] MEDS: SODIUM CHLORIDE 0.9% 1,000 ML 500 ML IV (10:08)
== END 2018-08-22 10:28 | disposition short-term general hospital (02) ==
PROVIDERS: Emergency Medicine; Emergency Provider Emergency Medicine; Family Provider Family Medicine; PCP Family Medicine
DX: K92.2 Gastrointestinal hemorrhage, unspecified (principal)
CPT/HCPCS: 36415; 36591; 80053; 82272; 85014; 85018; 85025; 85610; 85730; 87507; 96374; 96375; 99284; 99285; C9113; J2405

== ENCOUNTER → 2018-09-15 12:36 | Outpatient (CLI) | payer MEDICARE, OTHER, SELFPAY ==
[2018-09-15 12:59] LABS: Hematocrit 35.8 % (36-46); Hemoglobin 11.6 g/dL (12.0-16.0)
== END ==
PROVIDERS: PCP Family Medicine; Visit Provider Family Medicine
DX: D64.9 Anemia, unspecified (principal)
CPT/HCPCS: 36415; 85014; 85018

== ENCOUNTER 2019-02-23 22:52 | Emergency (ER) | payer MEDICARE, OTHER, SELFPAY ==
[2019-02-23 23:05] VITALS: BP 165/78; PULSE 80; RESP 20; TEMP 36.9; O2SAT 95; BMI 28.3
--- NOTE | 2019-02-23 23:18 | ED.GENADULT ---
HPI - General Adult General Chief complaint: Hypertension Stated complaint: HEADACHE BLOOD PRESSURE OVER 200 Time Seen by Provider: 02/23/19 23:17 Source: patient Mode of arrival: ambulatory Limitations: no limitations History of Present Illness HPI narrative: 63-year-old female nonsmoker presents with her for evaluation of a headache over the course of the day. She took her blood pressure at home and had multiple readings in the 200s/110s. She denies blurred vision, trouble with speech or any focal neurologic problems. She denies chest pain, shortness of breath nor abdominal pain. She does not have a history of hypertension. She took Tylenol at home which seems to have helped her headache. Blood pressure is already decreasing on arrival. She denies fever, chills, or any injury. She has no neck/back pain. Her FLOREZ is frontal, squeezing, and achy. She denies any obvious provocation or palliation. Onset (ago): hour(s) Location: head Radiation: non-radiation Severity: moderate Quality: aching Pain Consistency: now resolved Relieving factors: none Exacerbating factors: none Associated symptoms: denies other symptoms Treatments prior to arrival: other Related Data Home Medications Medication Instructions Recorded Confirmed [VITAMIN D] #0 05/25/11 01/06/19 Previous Rx's Medication Instructions Recorded gabapentin [Neurontin] 300 mg PO BID #30 cap 01/08/18 ondansetron [Zofran ODT] 4 mg SUBLINGUAL Q6HP PRN #20 odt 01/08/18 oxycodone-acetaminophen [Endocet] 1 tab PO Q4HP PRN #30 tab 01/08/18 amlodipine 10 mg PO DAILY #30 tab 02/24/19 Allergies Allergy/AdvReac Type Severity Reaction Status Date / Time No Known Drug Allergies Allergy Unverified 08/22/18 03:04 Review of Systems Constitutional Denies chills, Denies fever(s), Reports headache(s), Denies lethargy and Denies weakness Eyes Denies change in vision, Denies eye discharge, Denies irritation and Denies loss of vision ENT Ears, Nose, Mouth, and Throat: Denies change in voice, Reports headache(s), Denies neck pain and Denies sore throat Cardiovascular Denies chest pain, Denies irregular heart rhythm, Denies lightheadedness, Denies palpitations, Denies dyspnea, Denies dyspnea on exertion and Denies orthopnea Respiratory Denies cough, Denies dyspnea, Denies dyspnea on exertion and Denies wheezing Gastrointestinal Gastrointestinal: Denies abdominal pain, Denies change in bowel habits, Denies diarrhea, Denies nausea and Denies vomiting Genitourinary Denies hematuria, Denies flank pain, Denies urinary incontinence and Denies urinary urgency Musculoskeletal Denies neck pain Integumentary/Breasts Denies pruritus, Denies erythema, Denies rash and Denies wounds Neurologic Denies confusion, Reports headache(s), Denies loss of vision and Denies weakness Psychiatric Denies anxiety, Denies confusion, Denies depression, Denies homicidal ideation and Denies suicidal ideation Endocrine Denies palpitations Hematologic/Lymphatic Denies easy bruising Allergic/Immunologic Denies wheezing PFSH Medical History Breast CA (Acute) Social History Smoking Status: Never smoker alcohol intake: never Social History Smoking Status: Never smoker alcohol intake: never Exam Narrative Exam Narrative: GENERAL: Very pleasant 63-year-old female appears younger than stated age and resting comfortably, her at the bedside HEAD: Atraumatic. Normocephalic. No temporal or scalp tenderness. EYES: Pupils equal round and reactive. Extraocular motions intact. No scleral icterus. No injection or drainage. ENT: Nose without bleeding, purulent drainage or septal hematoma. Throat without erythema, tonsillar hypertrophy or exudate. Uvula midline. Airway patent. NECK: Trachea midline. No JVD or lymphadenopathy. Supple, nontender, no meningeal signs. CARDIOVASCULAR: Regular rate and rhythm without murmurs, gallops, or rubs. RESPIRATORY: Clear to auscultation. Breath sounds equal bilaterally. No wheezes, rales, or rhonchi. GASTROINTESTINAL: Abdomen soft, non-tender, nondistended. No hepato-splenomegaly, or palpable masses. No guarding. EXTREMITIES: No clubbing, cyanosis, or edema. No joint tenderness, effusion, or edema noted. BACK: Nontender without deformity or crepitance. No flank tenderness. NEURO: AOx3. SKIN: No rash or erythema. NIH Stroke Scale 1a. LOC: Patient is alert and keenly responsive (0) 1b. LOC Questions: Patient answers both LOC questions accurately (0) 1c. LOC Commands: Patient performs both tasks correctly (0) 2. Best Gaze: Normal (0) 3. Visual: No visual loss (0) 4. Facial palsy: Normal symmetrical movements (0) 5. Motor arm: No drift (0) 6. Motor leg: No drift (0) 7. Limb ataxia: Absent (0) 8. Sensory: Normal (0) 9. Best language: No aphasia; normal (0) 10. Dysarthria: Normal (0) 11. Extinction and inattention: No abnormality (0) NIHSS: 0 Initial Vital Signs Initial Vital Signs: Vital Signs Temperature 98.4 F 02/23/19 23:05 Pulse Rate 80 02/23/19 23:05 Respiratory Rate 20 02/23/19 23:05 Blood Pressure 165/78 H 02/23/19 23:05 Pulse Oximetry 95 02/23/19 23:05 Course Orders Ordered: ED Orders 02/23/19 23:52 Basic Metabolic Panel Stat Complete Blood Count AUTO DIFF Stat Troponin & CK Cardiac Panel Stat Discontinued Medications Amlodipine Besylate (Norvasc) 5 mg PO NOW ONE Stop: 02/23/19 23:51 Last Admin: 02/24/19 00:02 Dose: 5 mg Consultations Consultation #1: call to Dr. Downs (outpatient receptionist for PCP Dr. Diaz) to discuss which HTN agent his office would like me to start. We share the opinion that Norvasc is a good place to start. Vital Signs - 8 hr 02/23/19 23:05 02/24/19 00:04 02/24/19 00:52 Temperature 98.4 F Pulse Rate 80 72 68 Respiratory Rate 20 18 20 Blood Pressure 165/78 H 136/75 Blood Pressure [Left Arm] 141/77 H Blood Pressure [Right Arm] 141/77 H Pulse Oximetry 95 98 99 Medical Decision Making Lab Data Result diagrams: 02/23/19 23:52 02/23/19 23:52 Lab Results 02/23/19 02/23/19 Range/Units 23:52 23:52 WBC 4.5 (4.5-11.0) X10^3/uL RBC 4.34 (4.0-5.2) X10^6/uL Hgb 12.5 (12.0-16.0) g/dL Hct 37.4 (36-46) % MCV 86.2 (80-100) fL MCH 28.8 (26-34) PG MCHC 33.4 (30-36) % RDW 14.6 (11.6-14.8) % Plt Count 299 (150-400) X10^3/uL Neut % (Auto) 55.0 (50-75) % Lymph % (Auto) 31.4 (25-40) % [place] % (Auto) 9.6 (3-14) % Eos % (Auto) 2.9 (2-4) % Baso % (Auto) 1.1 (0-2) % Neut # (Auto) 2500 (8472-1990) /uL Lymph # (Auto) 1400 (7980-6728) /uL [place] # (Auto) 400 (0-900) /uL Eos # (Auto) 100 (0-450) /uL Baso # (Auto) 0 (0-100) /uL Sodium 138 (137-145) mmol/L Potassium 3.6 (3.4-5.1) mmol/L Chloride 101 (98-107) mmol/L Carbon Dioxide 29 (22-32) mmol/L BUN 11 (7-17) mg/dL Creatinine 0.80 (0.52-1.04) mg/dL Estimated GFR > 60.0 (>60) mL/min BUN/Creatinine Ratio 13.8 (6-22) Glucose 104 (80-110) mg/dL Calcium 10.0 (8.4-10.2) mg/dL Total Creatine Kinase 40 (30-135) U/L CK-MB (CK-2) TNP CK-MB (CK-2) Rel Index TNP Troponin I < 0.012 (0.01-0.034) ng/mL MDM Narrative Medical decision making narrative: 63F presents with FLOREZ and HTN. She has no history of HTN. FLOREZ improved soon after arrival and without intervention. Unclear if FLOREZ were due to HTN or vice versa. No other HTN type complaints. Labs unremarkable. Discharge Plan Departure Patient Disposition: Home Clinical Impression: Hypertension Qualifiers: Hypertension type: essential hypertension Qualified Code(s): I10 - Essential (primary) hypertension Discharge Date/Time: 02/24/19 00:55 Interventions: ED Discharge Assessment Last Done: 02/24/19 00:52 Instructions: DI for High Blood Pressure Activity Restrictions/Additional Instructions: *You have been diagnosed with [acute hypertension with resultant headache] *What to do: *Take medications as directed *Follow up with your primary care provider in 2-3 days, call for an appointment. Let them know you were seen in the Emergency Department and that we ask that you be seen in follow up *Return to ER if you should have any new, worsening or concerning symptoms Prescriptions: New amlodipine 10 mg tablet 10 mg PO DAILY Qty: 30 RF: 0 No Action [VITAMIN D] Qty: 0 RF: 0 oxycodone-acetaminophen [Endocet] 5 MG/325 MG tablet 1 tab PO Q4HP PRNQty: 30 RF: 0 gabapentin [Neurontin] 300 MG capsule 300 mg PO BID Qty: 30 RF: 0 ondansetron [Zofran ODT] 4 MG tablet,disintegrating 4 mg Sublingual Q6HP PRNQty: 20 RF: 0 Referrals: Jensen Diaz MD [Primary Care Provider] -
[2019-02-24 00:02] LABS: Add Manual Diff / Slide Review NO; Basophils Absolute Auto 0 /uL (0-100); Basophils Percent Auto 1.1 % (0-2); Eosinophils Absolute Auto 100 /uL (0-450); Eosinophils Percent Auto 2.9 % (2-4); Hematocrit 37.4 % (36-46); Hemoglobin 12.5 g/dL (12.0-16.0); Lymphocytes Absolute Auto 1400 /uL (1100-4500); Lymphocytes Percent Auto 31.4 % (25-40); Mean Corpuscular HGB Conc 33.4 % (30-36); Mean Corpuscular Hemoglobin 28.8 PG (26-34); Mean Corpuscular Volume 86.2 fL (80-100); Monocytes Absolute Auto 400 /uL (0-900); Monocytes Percent Auto 9.6 % (3-14); Neutrophils Absolute Auto 2500 /uL (1500-7000); Platelet Count 299 X10^3/uL (150-400); Red Blood Cell Count 4.34 X10^6/uL (4.0-5.2); Red Cell Distribution Width 14.6 % (11.6-14.8); White Blood Cell Count 4.5 X10^3/uL (4.5-11.0)
[2019-02-24] MEDS: AMLODIPINE 2.5 MG TABLET 5 MG PO (00:02)
[2019-02-24 00:04] VITALS: BP 141/77; PULSE 68; PULSE 72; RESP 18; O2SAT 100; O2SAT 98
[2019-02-24 00:08] LABS: BUN Creatinine Ratio 13.8 (6-22); Blood Urea Nitrogen 11 mg/dL (7-17); Carbon Dioxide 29 mmol/L (22-32); Chloride 101 mmol/L (98-107); Creatine Kinase 40 U/L (30-135); Estimated Glomerular Filt Rate > 60.0 mL/min (>60); Glucose 104 mg/dL (80-110); HEMOLYSIS < 15 (0-50); Potassium 3.6 mmol/L (3.4-5.1); Sodium 138 mmol/L (137-145)
[2019-02-24 00:20] LABS: Troponin I < 0.012 ng/mL (0.01-0.034)
[2019-02-24 00:52] VITALS: BP 136/75; PULSE 68; RESP 20; O2SAT 99
== END 2019-02-24 00:55 | disposition home or self-care (01) ==
PROVIDERS: Emergency Provider Emergency Medicine; Family Provider Family Medicine; PCP Family Medicine
DX: I10 Essential (primary) hypertension (principal); R51 Headache
CPT/HCPCS: 36415; 80048; 82550; 82553; 84484; 85025; 93005; 99282; 99283

== ENCOUNTER → 2019-03-30 11:34 | Outpatient (CLI) | payer MEDICARE, OTHER, SELFPAY ==
--- NOTE | 2019-03-30 | DI.MG.S_ITS ---
BILATERAL DIGITAL SCREENING MAMMOGRAM 3D/2D WITH CAD POST LUMPECTOMY: 03/30/2019 CLINICAL: Routine screening. Personal history of left breast cancer. Comparison is made to exams dated: 01/08/2018 specimen, 01/08/2018 localization, and 10/21/2017 mammogram - [facility]. The tissue of both breasts is heterogeneously dense. This may lower the sensitivity of mammography. Current study was also evaluated with a Computer Aided Detection (CAD) system. There are benign post operative findings in the left breast. No significant masses, calcifications, or other findings are seen in either breast. There has been no significant interval change. IMPRESSION: There is no mammographic evidence of malignancy. A 1 year screening mammogram is recommended. This exam was interpreted at Station ID: [id number]. NOTE: For mammograms, a report in lay terms will be sent to the patient. Approximately 15% of breast malignancies will not be visualized mammographically. In the management of a palpable breast mass, a negative mammogram must not discourage biopsy of a clinically suspicious lesion. Electronically Signed By: David morales/amanda:03/30/2019 16:16:57 letter sent: Normal Exam ACR BI-RADS Category 2: Benign Finding(s) 3342F
== END ==
PROVIDERS: Family Provider Family Medicine; PCP Family Medicine; Visit Provider Family Medicine
DX: Z12.31 Encounter for screening mammogram for malignant neoplasm of breast (principal); Z85.3 Personal history of malignant neoplasm of breast
CPT/HCPCS: 77063; 77067

== ENCOUNTER → 2019-06-18 15:34 | Outpatient (CLI) | payer MEDICARE, OTHER, SELFPAY ==
--- NOTE | 2019-06-18 15:37 | DI.RAD.S_ITS ---
PROCEDURE: XR SHOULDER RT MIN 2V INDICATIONS: rotator cuff syndrome TECHNIQUE: 3 views of the shoulder were acquired. COMPARISON: [facility], CT, CT MICHAUD, 07/24/2018, 12:15. [facility], CR, CHEST 2 VIEW, 03/24/2013, 13:19. FINDINGS: Bones: No fractures or dislocations. No suspicious bony lesions. Visualized ribs appear intact. Mild joint narrowing with periarticular osteophyte formation of the acromioclavicular and glenohumeral joint. 2.2 cm sclerotic focus again seen involving the right humeral head with chondroid matrix which appears unchanged from prior chest radiograph dated 03/24/13. Small bone island again seen involving the right third posterior rib. Soft tissues: No suspicious soft tissue calcifications. IMPRESSION: Mild acromioclavicular and glenohumeral joint degeneration. Sclerotic lesion involving the proximal right humerus with chondroid matrix unchanged consistent with enchondroma. Dictated by: Yoel Bangura [facility] Interpreted: Andrew Richard MD on 06/18/2019 at 16:12 Approved by: Andrew Richard M.D. on 06/18/2019 at 17:48
== END ==
PROVIDERS: Family Provider Family Medicine; PCP Family Medicine; Visit Provider Hospitalist
DX: M75.101 Unspecified rotator cuff tear or rupture of right shoulder, not specified as traumatic (principal); M19.011 Primary osteoarthritis, right shoulder
CPT/HCPCS: 73030

== ENCOUNTER 2019-09-09 14:04 | Emergency (ER) | payer MEDICARE, OTHER, SELFPAY ==
[2019-09-09 14:11] VITALS: BP 132/84; PULSE 76; RESP 24; TEMP 36.1; O2SAT 98
--- NOTE | 2019-09-09 14:18 | DI.RAD.S_ITS ---
PROCEDURE: XR HUMERUS LT 2V INDICATIONS: fall, lt upper arm pain TECHNIQUE: 2 views of the humerus were acquired. COMPARISON: None. FINDINGS: Bones: Proximal humerus fracture at the surgical neck. There is medial displacement of the distal shaft. Chronic background calcific tendinitis and joint degeneration. Surgical clips projecting in the axilla IMPRESSION: Mildly displaced proximal left humerus fracture of the surgical neck Dictated by: Andrew Richard M.D. on 09/09/2019 at 14:45 Approved by: Andrew Richard M.D. on 09/09/2019 at 14:47
[2019-09-09] MEDS: ONDANSETRON 4 MG ODT PO (14:43)
[2019-09-09] MEDS: HYDROCODONE/ACET 5/325 TABLET 2 TAB PO (14:43)
--- NOTE | 2019-09-09 14:56 | ED.UPPEXIN ---
HPI - Extremity Injury (Upper) <JESSICA Yap - Last Filed: 09/10/19 00:12> General Chief Complaint: Extremity Injury, Upper Stated Complaint: thinks she broke her left shoulder, fall down stai Time Seen by Provider: 09/09/19 14:48 Source: patient Mode of arrival: Ambulatory Limitations: no limitations History of Present Illness HPI narrative: This is a 64-year-old female, nonsmoker, who presents to ED with her spouse with chief complain of left upper arm pain. Patient states she had sustained a fall on stairs while carrying a heavy drawer and slipped and fall on a wooden stairs. Patient denies any other injuries including hitting her head, pain in left wrist, elbow, posterior shoulders. Patient states she is able to move her fingers and intact sensation. Denies previous injuries to affected upper arm. Right dominant hand. Related Data Home Medications Medication Instructions Recorded Confirmed ascorbate calcium (vitamin C) 500 500 mg PO DAILY 06/18/19 06/18/19 mg tablet cholecalciferol (vitamin D3) 5,000 5,000 unit PO DAILY 06/18/19 06/18/19 unit capsule vitamin B complex 1 tab PO DAILY 06/18/19 06/18/19 Previous Rx's Medication Instructions Recorded hydrocodone-acetaminophen [[place]] 1 - 2 tab PO Q6H PRN #20 tab 09/09/19 Allergies Allergy/AdvReac Type Severity Reaction Status Date / Time No Known Drug Allergies Allergy Unverified 06/18/19 15:10 Review of Systems <JESSICA Yap - Last Filed: 09/10/19 00:12> Review of Systems Narrative: General: Denies fever, chills, fatigue, malaise, sweats. HEENT: Denies sinus pain, ear pain, sore throat, difficulty swallowing, dizziness. Respiratory: Denies dyspnea, cough, wheezing, hemoptysis, sputum. Cardiovascular: Denies chest pain, palpitations, orthopnea, edema. Gastrointestinal: Denies nausea, vomiting, abdominal pain, diarrhea, constipation, melena. : Denies dysuria, frequency, incontinence, hematuria, urinary retention. Musculoskeletal: See HPI Skin: Denies rash, skin lesions, or other. Neurologic: Denies weakness, headache, numbness, change in speech, confusion, seizures, incoordination. Psychiatric: No concerning psychosocial issues. 12-point review of systems is negative except for those stated above. Patient History <JESSICA Yap - Last Filed: 09/10/19 00:12> Medical History Breast CA (Acute) Social History Smoking Status: Never smoker alcohol intake: never Smoking Status: Never smoker alcohol intake frequency: 0-2 drinks per day Substance Use Type: does not use Exam <JESSICA Yap - Last Filed: 09/10/19 00:12> Narrative Exam Narrative: General appearance: well developed, well nourished, in no acute distress. Head: normocephalic, atraumatic, no scalp lesions, non-tender. ENT: Hearing grossly intact. Nose without bleeding, purulent discharge, septal hematoma or deviation. Turbinate without erythema or swelling. Facial sinuses nontender to palpate. Mucous membrane moist, no mucosal lesion. Throat without erythema, tonsillar hypertrophy or exudate. Uvula in midline, airway patent. Neck/Thyroid: neck supple, full range of motion, no visible masses or meningeal signs. No JVD, non-tender without lymphadenopathy. Skin: no suspicious rashes, lesions over visible areas. Warm and dry and appropriate color for ethnicity. Heart: no clubbing, no cyanosis, no edema. S1 and S2 normal. RRR w/o murmurs, clicks, or bruits. Lungs: Breathing even and unlabored. No stridor. No accessory muscles used. Able to speak in full sentences. Chest: normal shape and expansion. Abdomen: non-obese, non-distended. Neurologic: alert and oriented. Cognitive exam, [employer] and PNS grossly intact on informal exam. Psych: good eye contact, normal affect. Initial Vital Signs Initial Vital Signs: Vital Signs Temperature 97.0 F L 09/09/19 14:11 Pulse Rate 76 09/09/19 14:11 Respiratory Rate 24 09/09/19 14:11 Blood Pressure 132/84 09/09/19 14:11 Pulse Oximetry 98 09/09/19 14:11 Extrem Right upper extremity: hand Details: normal to inspection and normal capillary refill Left upper extremity: shoulder/upper arm Details: tenderness Location: of the proximal humerus; not of the scapula and abnormal ROM Details: held in an abnormal fashion Details: in internal rotation, pain with active ROM and pain with passive ROM; no swelling, elbow/forearm Details: normal to inspection; no tenderness, wrist Details: normal to inspection; no tenderness and hand Details: normal to inspection, normal capillary refill, neuromotor exam normal Details: wrist extension normal, thumb opposition normal, thumb IP flexion normal, thumb ADduction normal and fingers 2-5 ABduction normal, vascular exam Details: radial pulse present and normal ROM of fingers <Priya Gavin DO - Last Filed: 09/10/19 07:31> Initial Vital Signs Initial Vital Signs: Vital Signs Temperature 97.0 F L 09/09/19 14:11 Pulse Rate 76 09/09/19 14:11 Respiratory Rate 24 09/09/19 14:11 Blood Pressure 132/84 09/09/19 14:11 Pulse Oximetry 98 09/09/19 14:11 Procedures <JESSICA Yap - Last Filed: 09/10/19 00:12> Orthopedic Splinting/Casting Injury #1: Side: left Upper Extremity Injury Location: upper arm Upper Extremity Immobilizer: sling/shoulder immobilizer Post splinting neuro exam: intact Post splinting vascular exam: intact Placed by: Nursing Course <JESSICA Yap - Last Filed: 09/10/19 00:12> Orders Ordered: Discontinued Medications Hydrocodone Bitart/Acetaminophen ([place] 5/325) 2 tab PO NOW ONE Stop: 09/09/19 14:40 Last Admin: 09/09/19 14:43 Dose: 2 tab Documented by: DANNIELLE Ondansetron HCl (Zofran Odt) 4 mg PO NOW ONE Stop: 09/09/19 14:39 Last Admin: 09/09/19 14:43 Dose: 4 mg Documented by: DANNIELLE Consultations Consultation #1: Dr. Ospina contacted and informed the findings, f/u with Ortho outpt with sling and pain mgt. Time: 16:45 Vital Signs Vital signs: Vital Signs - 8 hr 09/09/19 16:23 09/09/19 16:35 Pulse Rate 85 Pulse Rate [Left Radial] 78 Respiratory Rate 17 Blood Pressure [Right Arm] 124/79 Pulse Oximetry 97 <DO Chepe Pineda Last Filed: 09/10/19 07:31> Orders Ordered: Discontinued Medications Hydrocodone Bitart/Acetaminophen ([place] 5/325) 2 tab PO NOW ONE Stop: 09/09/19 14:40 Last Admin: 09/09/19 14:43 Dose: 2 tab Documented by: DANNIELLE Ondansetron HCl (Zofran Odt) 4 mg PO NOW ONE Stop: 09/09/19 14:39 Last Admin: 09/09/19 14:43 Dose: 4 mg Documented by: DANNIELLE Vital Signs Vital signs: Vital Signs - 8 hr 09/09/19 16:23 09/09/19 16:35 Pulse Rate 85 Pulse Rate [Left Radial] 78 Respiratory Rate 17 Blood Pressure [Right Arm] 124/79 Pulse Oximetry 97 MDM - Extremity Injury (Upper) <JESSICA Yap - Last Filed: 09/10/19 00:12> Differential Diagnosis Differential diagnosis: Likely fracture of humerus and other (Humerus sprain/contusion) Medical Records Attestation: I reviewed the patient's medical records. Imaging Data XR-Humerus LT: Radiologist's impression: [address] [address] XRay Report Signed Patient: Karly Hightower LMR#: [id number] : [id number]:[id number] Age/Sex: 64 / FDate of Service: 09/09/19 Loc: ED Accession Number: [id number] Procedure: XR humerus LT 2V Ordering Provider: Priya Gavin D.O. PROCEDURE: XR HUMERUS LT 2V INDICATIONS: fall, lt upper arm pain TECHNIQUE: 2 views of the humerus were acquired. COMPARISON: None. FINDINGS: Bones: Proximal humerus fracture at the surgical neck. There is medial displacement of the distal shaft. Chronic background calcific tendinitis and joint degeneration. Surgical clips projecting in the axilla IMPRESSION: Mildly displaced proximal left humerus fracture of the surgical neck Dictated by: Andrew Richard M.D. on 09/09/2019 at 14:45 Approved by: Andrew Richard M.D. on 09/09/2019 at 14:47 XR- Shoulder LT: Radiologist's impression: [address] [address] XRay Report Signed Patient: Karly Hightower LMR#: [id number] : 3Acct:[id number] Age/Sex: 64 / FDate of Service: 09/09/19 Loc: ED Accession Number: [id number] Procedure: XR shoulder LT min 2V Ordering Provider: Jeremiah Bowman PROCEDURE: XR SHOULDER LT MIN 2V INDICATIONS: Left humerus fracture TECHNIQUE: A 3 views of the shoulder were acquired. COMPARISON: [facility], CR, XR SHOULDER RT MIN 2V, 06/18/2019, 15:45. FINDINGS: Bones: Mildly displaced transverse fracture of the proximal humeral neck and minimally displaced greater tuberosity fracture. There is mild comminution of the humeral head. No glenohumeral joint dislocation. Mild anterior displacement of the humeral diaphysis. Soft tissues: No suspicious soft tissue calcifications. IMPRESSION: Mildly displaced humeral head neck fracture without dislocation. Dictated by: Kaye Meadows M.D. on 09/09/2019 at 16:32 Approved by: Kaye Meadows M.D. on 09/09/2019 at 16:34 [facility] Narrative Medical decision making narrative: This is a 64-year-old female who presents to ED with left upper arm pain after she accidentally slipped and fall on left upper arm on a stairs. Neurovascular exam distally intact in left hand. Right dominant hand. Denies any other injuries from falling. X-ray test shows mildly displaced transverse fracture of proximal humeral neck and greater tuberosity fracture without dislocation. There is mild comminution of the humeral head. Patient was medicated with 2 [place] upon arrival. Left arm was placed in a shoulder immobilizer and patient's physical findings and x-ray test result were discussed with Dr. Ospina. Return precautions were discussed with the patient and patient advised to follow up with [facility] for further evaluation and treatment. All questions were answered and patient verbalized understanding and agrees with the treatment plan. Narcotic medication precautions were discussed with the patient and advised RICE therapy. Discharge Plan Departure Patient Disposition: Home Clinical Impression: Closed fracture of left proximal humerus Qualifiers: Encounter type: initial encounter Fracture morphology: other fracture Fracture alignment: displaced Qualified Code(s): S42.292A - Other displaced fracture of upper end of left humerus, initial encounter for closed fracture Discharge Date/Time: 09/09/19 17:04 Instructions: Humeral Shaft Fracture Activity Restrictions/Additional Instructions: You have been diagnosed with [mildly displaced proximal left humerus fracture of the surgical neck. ]. What to do: *Take your medications as directed. Please take [place] 1-2 tabs as needed every 6 hours for pain. This medication may cause drowsiness since it is a narcotic medications so please take precautions such as not driving, operating heavy equipments or drinking alcohol. This cause constipation as well so please take stool softener or take high-fiber diet with increasing hydration. *Follow up with your primary care provider and [facility]ist in 2-3 days, call for an appointment. Let them know you were seen in the ED and that we asked you to be seen in follow up. Please wear shoulder immobilizer all time for your pain and as splint *Return to ED if you have any new, worsening, or concerning symptoms, such as [tingling, numbness, weakness to affected extremity, chest pain, breathing difficulty, unable to tolerate fluids or any acute concerns]. Prescriptions: New hydrocodone-acetaminophen [[place]] 5-325 mg tablet 1 - 2 tab PO Q6H PRN (Reason: pain) Qty: 20 RF: 0 No Action cholecalciferol (vitamin D3) 5,000 unit capsule 5,000 unit PO DAILY RF: 0 vitamin B complex [B Complex 1] tablet 1 tab PO DAILY RF: 0 ascorbate calcium (vitamin C) 500 mg tablet 500 mg PO DAILY RF: 0 Referrals: [facility] [Provider Group] Jensen Diaz MD [Primary Care Provider] -
--- NOTE | 2019-09-09 15:19 | DI.RAD.S_ITS ---
PROCEDURE: XR SHOULDER LT MIN 2V INDICATIONS: Left humerus fracture TECHNIQUE: A 3 views of the shoulder were acquired. COMPARISON: [facility], CR, XR SHOULDER RT MIN 2V, 06/18/2019, 15:45. FINDINGS: Bones: Mildly displaced transverse fracture of the proximal humeral neck and minimally displaced greater tuberosity fracture. There is mild comminution of the humeral head. No glenohumeral joint dislocation. Mild anterior displacement of the humeral diaphysis. Soft tissues: No suspicious soft tissue calcifications. IMPRESSION: Mildly displaced humeral head neck fracture without dislocation. Dictated by: Kaye Meadows M.D. on 09/09/2019 at 16:32 Approved by: Kaye Meadows M.D. on 09/09/2019 at 16:34
[2019-09-09 15:22] VITALS: BP 121/76; PULSE 79; RESP 18; O2SAT 99
[2019-09-09 16:23] VITALS: BP 124/79; PULSE 85; RESP 17; O2SAT 97
[2019-09-09 16:35] VITALS: PULSE 78
--- NOTE | 2019-09-09 16:36 | PC.NURSE ---
Motion / strength limited by pain. Sensation intact.
== END 2019-09-09 17:04 | disposition home or self-care (01) ==
PROVIDERS: Emergency Provider Nurse Practitioner Family; Family Provider Family Medicine; PCP Family Medicine
DX: S42.292A Other displaced fracture of upper end of left humerus, initial encounter for closed fracture (principal); W10.9XXA Fall (on) (from) unspecified stairs and steps, initial encounter
CPT/HCPCS: 73030; 73060; 99281; 99283

== ENCOUNTER → 2020-05-07 13:03 | Outpatient (CLI) | payer MEDICARE, SELFPAY ==
--- NOTE | 2020-05-07 | DI.MG.S_ITS ---
BILATERAL DIGITAL SCREENING MAMMOGRAM 3D/2D WITH CAD POST LUMPECTOMY: 05/07/2020 CLINICAL: Routine screening. Personal history of left breast cancer. Comparison is made to exams dated: 03/30/2019 mammogram, 09/06/2017 mammogram, and 09/01/2014 mammogram - [facility]. The tissue of both breasts is heterogeneously dense. This may lower the sensitivity of mammography. Current study was also evaluated with a Computer Aided Detection (CAD) system. There are benign post operative findings in the left breast. No significant masses, calcifications, or other findings are seen in either breast. There has been no significant interval change. IMPRESSION: BENIGN There is no mammographic evidence of malignancy. A 1 year screening mammogram is recommended. This exam was interpreted at Station ID: [id number]. NOTE: For mammograms, a report in lay terms will be sent to the patient. Approximately 15% of breast malignancies will not be visualized mammographically. In the management of a palpable breast mass, a negative mammogram must not discourage biopsy of a clinically suspicious lesion. Electronically Signed By: Ernesto nash/amanda:05/09/2020 08:20:38 letter sent: Normal Exam ACR BI-RADS Category 2: Benign Finding(s) 3342F
== END ==
PROVIDERS: Family Provider Family Medicine; PCP Family Medicine; Referring Provider Family Medicine; Visit Provider Family Medicine
DX: Z12.31 Encounter for screening mammogram for malignant neoplasm of breast (principal); Z85.3 Personal history of malignant neoplasm of breast
CPT/HCPCS: 77063; 77067

== ENCOUNTER → 2021-06-14 16:57 | Outpatient (CLI) | payer MEDICARE, SELFPAY ==
--- NOTE | 2021-06-14 16:59 | DI.MG.S_ITS ---
BILATERAL DIGITAL SCREENING MAMMOGRAM 3D/2D WITH CAD: 06/14/2021 CLINICAL: Routine screening. Personal history of left breast cancer. Comparison is made to exams dated: 05/07/2020 mammogram, 03/30/2019 mammogram, and 10/21/2017 mammogram - [facility]. The tissue of both breasts is heterogeneously dense. This may lower the sensitivity of mammography. Current study was also evaluated with a Computer Aided Detection (CAD) system. There are benign post operative findings in the left breast. No significant masses, calcifications, or other findings are seen in either breast. There has been no significant interval change. IMPRESSION: BENIGN There is no mammographic evidence of malignancy. A 1 year screening mammogram is recommended. This exam was interpreted at Station ID: [id number]. NOTE: For mammograms, a report in lay terms will be sent to the patient. Approximately 15% of breast malignancies will not be visualized mammographically. In the management of a palpable breast mass, a negative mammogram must not discourage biopsy of a clinically suspicious lesion. Electronically Signed By: Jung Grant acr/penrad:06/14/2021 18:35:40 letter sent: Normal Exam ACR BI-RADS Category 2: Benign Finding(s) 3342F
== END ==
PROVIDERS: Family Provider Family Medicine; PCP Family Medicine; Referring Provider Registered Nurse Diabetes Educator; Visit Provider Registered Nurse Diabetes Educator
DX: Z12.31 Encounter for screening mammogram for malignant neoplasm of breast (principal); Z85.3 Personal history of malignant neoplasm of breast
CPT/HCPCS: 77063; 77067

== ENCOUNTER → 2022-09-26 09:38 | Outpatient (CLI) | payer MEDICARE, SELFPAY ==
--- NOTE | 2022-09-26 | DI.MG.S_ITS ---
BILATERAL DIGITAL SCREENING MAMMOGRAM 3D/2D WITH CAD: 09/26/2022 CLINICAL: Routine screening. Personal history of left breast cancer. Comparison is made to exams dated: 06/14/2021 mammogram, 05/07/2020 mammogram, and 03/30/2019 mammogram - [facility]. Both breasts are heterogeneously dense, which may obscure small masses (category c / 51-75% glandular tissue). Current study was also evaluated with a Computer Aided Detection (CAD) system. There are benign post operative findings in the left breast. No significant masses, calcifications, or other findings are seen in either breast. There has been no significant interval change. IMPRESSION: BENIGN There is no mammographic evidence of malignancy. A 1 year screening mammogram is recommended. This exam was interpreted at Station ID: [id number]. NOTE: For mammograms, a report in lay terms will be sent to the patient. Approximately 15% of breast malignancies will not be visualized mammographically. In the management of a palpable breast mass, a negative mammogram must not discourage biopsy of a clinically suspicious lesion. Electronically Signed By: Boubacar Sears M.D., jr/amanda:09/26/2022 13:06:06 letter sent: Normal Exam ACR BI-RADS Category 2: Benign Finding(s) 3342F
== END ==
PROVIDERS: Family Provider Family Medicine; PCP Registered Nurse Diabetes Educator; Referring Provider Internal Medicine; Visit Provider Internal Medicine
DX: Z12.31 Encounter for screening mammogram for malignant neoplasm of breast (principal); Z85.3 Personal history of malignant neoplasm of breast
CPT/HCPCS: 77063; 77067

== ENCOUNTER → 2024-01-17 13:58 | Outpatient (CLI) | payer MEDICARE, SELFPAY ==
--- NOTE | 2024-01-17 | DI.MG.S_ITS ---
BILATERAL DIGITAL SCREENING MAMMOGRAM 3D/2D WITH CAD: 01/17/2024 CLINICAL: Routine screening. Personal history of left breast cancer. Comparison is made to exams dated: 09/26/2022 mammogram, 06/14/2021 mammogram, and 05/07/2020 mammogram - [facility]. Both breasts are heterogeneously dense, which may obscure small masses (category c / 51-75% glandular tissue). Current study was also evaluated with a Computer Aided Detection (CAD) system. There are benign post operative findings in the left breast. No significant masses, calcifications, or other findings are seen in either breast. There has been no significant interval change. IMPRESSION: BENIGN There is no mammographic evidence of malignancy. A 1 year screening mammogram is recommended. This exam was interpreted at Station ID: [id number]. NOTE: For mammograms, a report in lay terms will be sent to the patient. Approximately 15% of breast malignancies will not be visualized mammographically. In the management of a palpable breast mass, a negative mammogram must not discourage biopsy of a clinically suspicious lesion. Electronically Signed By: Kaye pike/amanda:01/20/2024 16:12:21 letter sent: Normal Exam ACR BI-RADS Category 2: Benign Finding(s) 3342F
== END ==
LOC: MAMMO 14:00
PROVIDERS: Family Provider Family Medicine; PCP Registered Nurse Diabetes Educator; Referring Provider Internal Medicine; Visit Provider Internal Medicine
DX: Z12.31 Encounter for screening mammogram for malignant neoplasm of breast (principal); Z85.3 Personal history of malignant neoplasm of breast; R92.333 Mammographic heterogeneous density, bilateral breasts
CPT/HCPCS: 77063; 77067

== ENCOUNTER → 2024-05-04 11:58 | Outpatient (CLI) | payer MEDICARE, SELFPAY ==
--- NOTE | 2024-05-04 11:59 | DI.MG.S_ITS ---
UNILATERAL LEFT DIGITAL DIAGNOSTIC MAMMOGRAM 3D/2D: 05/04/2024 CLINICAL: Left breast cancer. New left breast enlargement with firmness. Comparison is made to exams dated: 01/17/2024 mammogram, 09/26/2022 mammogram, and 06/14/2021 mammogram - [facility]. The left breast is heterogeneously dense, which may obscure small masses (category c / 51-75% glandular tissue). There are stable benign post operative findings in the left breast. No significant masses, calcifications, or other findings are seen in the breast. IMPRESSION: BENIGN There is no abnormality seen in the left breast to correspond with the diffuse area of clinical concern and palpable abnormality, however, clinical followup is recommended. There is no mammographic evidence of malignancy. Return to annual mammogram screening schedule is recommended. Future imaging is recommended as follows: 01/17/2025 screening mammogram. This exam was interpreted at Station ID: [id number]. NOTE: For mammograms, a report in lay terms will be sent to the patient. Approximately 15% of breast malignancies will not be visualized mammographically. In the management of a palpable breast mass, a negative mammogram must not discourage biopsy of a clinically suspicious lesion. Electronically Signed By: Nathan abbott/amanda:05/04/2024 21:34:08 letter sent: Clinical Evaluation ACR BI-RADS Category 2: Benign Finding(s) 3342F
== END ==
LOC: MAMMO 11:59
PROVIDERS: Family Provider Family Medicine; PCP Registered Nurse Diabetes Educator; Referring Provider Registered Nurse Diabetes Educator; Visit Provider Registered Nurse Diabetes Educator
DX: N64.4 Mastodynia (principal); C50.912 Malignant neoplasm of unspecified site of left female breast; R23.4 Changes in skin texture; R92.332 Mammographic heterogeneous density, left breast
CPT/HCPCS: 77065; G0279